=== PATIENT | female | born 1945 | race Caucasian/White ===

== ENCOUNTER → 2016-10-01 | Outpatient (CLI) | payer MEDICARE, OTHER ==
--- NOTE | ~2016-10-01 | MY11 ---
[facility] A Service of [facility] & [facility] RADIOLOGY TEXT RESULTS PATIENT: CUAUHTEMOC GARBER LOCATION: [facility] : 49 UNIT #: [id number] AGE: [address]: Jaqueline Cazares SEX: F ORDER DR: [id number] [facility] [address] [place], [place] [address] [id number] O MR#: [id number] #: [id number] NAME: CUAUHTEMOC GARBER : 1945 SEX: F STUDY DATE/TIME: 10/01/2016 14:39 UNIT: [facility] ROOM: STUDY DESCRIPTION: MY Mammogram Screening Dig Igor Attending Physician: Jaqueline Cazares Ordering Physician: Jaqueline Cazares M.D. Primary Care Physician: Jaqueline Cazares MEDICAL IMAGING REPORT This report is preliminary unless electronic signature is present EXAM Digital screening mammogram, 10/01/2016, [facility]. HISTORY 71-year-old woman positive family history, aunts. Prior right breast biopsy. Annual screen. COMPARISON Comparison mammograms date to 04/10/2005, with most recent 09/27/2015. FINDINGS Digital imaging of each breast was completed utilizing screening protocol. Biopsy marker was placed near the superior areolar margin right breast. Subareolar duct prominence bilaterally most pronounced in the right breast is stable. There is no interval occurring mass. I see no suspicious microcalcifications and no architectural deformity. IMPRESSION Stable benign mammogram. Annual screening recommended. Patients over the age of 40 are entered into a reminder system with target due date for the next mammogram. A result letter will also be sent to the patient. BIRADS: 2 Benign findings. Dictated by... Woody Toledo M.D. THIS IS AN ELECTRONICALLY VERIFIED REPORT [facility] A Service of [facility] & [facility] RADIOLOGY TEXT RESULTS PATIENT: CUAUHTEMOC GARBER LOCATION: [facility] : 49 UNIT #: [id number] AGE: [address]: Jaqueline Cazares SEX: F ORDER DR: Woody Toledo M.D. at 10/03/2016 8:08 AM FLACO/chin TD: 10/01/2016 17:59 JOB #: [id number] MEDICAL IMAGING REPORT Page 1 of 1 COPY
== END | disposition home or self-care (01) ==
LOC: CWCC 14:20
DX: Z12.31 Encounter for screening mammogram for malignant neoplasm of breast (principal); Z80.3 Family history of malignant neoplasm of breast; Z98.890 Other specified postprocedural states
CPT/HCPCS: G0202